=== PATIENT | male | born 1965 | race Caucasian/White ===

== ENCOUNTER 2018-10-16 08:25 | Day surgery (SDC) | payer OTHER, BC ==
[2018-10-16] MEDS ORDERED: FENTAnyl 50 MCG/ML VIAL (10:30)
[2018-10-16] MEDS ORDERED: MIDAZOLAM 1 MG/ML 2 ML INJ ×2 (10:31)
== END 2018-10-16 13:28 | disposition home or self-care (01) ==
LOC: GIL 08:25
DX: D50.9 Iron deficiency anemia, unspecified (principal); K64.8 Other hemorrhoids
CPT/HCPCS: 45378